=== PATIENT | female | born 1970 | race Caucasian/White ===

== ENCOUNTER 2021-09-17 15:51 | Emergency (ER) | payer MEDICARE, OTHER ==
[2021-09-17] MEDS ORDERED: Enalaprilat 1.25 MG/ML SDV IVPUSH ONE (17:14)
[2021-09-17] MEDS ORDERED: Ondansetron 4 MG Tab.DIS PO ONE (19:13)
== END 2021-09-17 20:20 | disposition home or self-care (01) ==
LOC: JD.ED 15:51
DX: R42 Dizziness and giddiness (principal); I16.0 Hypertensive urgency; Z88.1 Allergy status to other antibiotic agents; Z88.2 Allergy status to sulfonamides; Z88.8 Allergy status to other drugs, medicaments and biological substances; Z87.891 Personal history of nicotine dependence; Z20.822 Contact with and (suspected) exposure to COVID-19
CPT/HCPCS: 36415; 70450; 71045; 80053; 84484; 85025; 85610; 85730; 87635; 93005; 96374; 99284; A9270; U0002